=== PATIENT | female | born 1990 | race Two or more races ===

== ENCOUNTER 2021-05-28 14:28 | Inpatient (IN) | payer OTHER ==
[~2021-05-28] VITALS: Ht 182.9 cm; Wt 68.0 kg
[2021-05-28] MEDS ORDERED: SYNTHROID50 MCG PO (14:32)
[2021-05-28] MEDS ORDERED: CELEBREX50 MG PO (14:34)
[2021-05-28] MEDS ORDERED: GABAPENTIN100 MG (14:35)
[2021-05-29] MEDS ORDERED: DROSPIRENONE-E1 EAC1 (11:42)
== END 2021-05-29 19:00 | disposition home or self-care (01) | DRG 742 ==
LOC: ER 14:28 → O/R 18:30 → SEC-K 18:30 → O/R 05-29 09:26
PROVIDERS: Surgery; ADMIT Obstetrics & Gynecology Gynecology; ATTEND Obstetrics & Gynecology Gynecology
PROC: 0UT64ZZ Resection of Left Fallopian Tube, Percutaneous Endoscopic Approach (ICD-10-PCS; 2021-05-29)
PROC: 0DNW4ZZ Release Peritoneum, Percutaneous Endoscopic Approach (ICD-10-PCS; 2021-05-29)
PROC: 0UT14ZZ Resection of Left Ovary, Percutaneous Endoscopic Approach (ICD-10-PCS; principal; 2021-05-29 08:45)
PROC: 0DTJ4ZZ Resection of Appendix, Percutaneous Endoscopic Approach (ICD-10-PCS; 2021-05-29 08:45)
DX: N80.1 Endometriosis of ovary (principal); K35.80 Unspecified acute appendicitis; N80.5 Endometriosis of intestine; N99.4 Postprocedural pelvic peritoneal adhesions; N73.6 Female pelvic peritoneal adhesions (postinfective); D28.2 Benign neoplasm of uterine tubes and ligaments; E03.8 Other specified hypothyroidism; Z20.822 Contact with and (suspected) exposure to COVID-19